=== PATIENT | male | born 1990 | race Hispanic/Latino ===

== ENCOUNTER 2019-01-18 14:02 | Emergency (ER) | payer SELFPAY ==
[2019-01-18] MEDS ORDERED: ASPIRIN 325 MG TABLET ONE (14:33)
[2019-01-18] MEDS ORDERED: DIAZEPAM 5 MG TABLET ONE (14:34)
[2019-01-18 14:36] LABS: BASOPHILS % (AUTO) 0.4 % (0.0-5.0); EOSINOPHILS % (AUTO) 0.3 % (0.0-8.0); HEMATOCRIT 44.9 % (42-54); LYMPHOCYTES % (AUTO) 23.3 % (21.0-51.0); MEAN CORPUSCULAR HEMOGLOBIN 31.8 pg (27.0-33.0); MEAN CORPUSCULAR HGB CONC 34.3 g/dL (32.0-36.0); MEAN CORPUSCULAR VOLUME 92.5 fL (79-99); MONOCYTES % (AUTO) 7.5 % (3.0-13.0); NEUTROPHILS % (AUTO) 68.5 % (40.0-77.0); PLATELET COUNT (AUTO) 247 K/uL (130-400); RED BLOOD CELL COUNT(AUTO) 4.85 MIL/uL (4.50-6.20); RED CELL DISTRIBUTION WIDTH 14.1 % (11.0-15.5)
[2019-01-18 14:45] LABS: CREATININE 1.1 mg/dL (0.5-1.5); POTASSIUM 4.3 mmol/L (3.5-5.1)
[2019-01-18 14:51] LABS: ALBUMIN 3.8 g/dL (3.5-5.0); BILIRUBIN,TOTAL 0.4 mg/dL (0.2-1.0); TOTAL PROTEIN, SERUM 7.7 g/dL (6.0-8.3)
[2019-01-18 14:54] LABS: AMPHET/METH SCREEN,URINE NEGATIVE (NEGATIVE); BARBITURATE SCREEN, URINE NEGATIVE (NEGATIVE); BENZODIAZEPINES SCREEN,URINE POSITIVE (NEGATIVE); CANNABINOID SCREEN,URINE POSITIVE (NEGATIVE); COCAINE SCREEN,URINE POSITIVE (NEGATIVE); OPIATE SCREEN,URINE NEGATIVE (NEGATIVE); PHENCYCLIDINE SCREEN,URINE NEGATIVE (NEGATIVE)
[2019-01-18 15:01] LABS: B-TYPE NATRIURETIC PEPTIDE 36 pg/mL (0-100)
== END 2019-01-18 15:43 | disposition home or self-care (01) ==
LOC: EDH 14:02
DX: R07.89 Other chest pain (principal); F41.9 Anxiety disorder, unspecified; Z72.0 Tobacco use
CPT/HCPCS: 36415; 71045; 80053; 80305; 82550; 83880; 84484; 85025; 93005